=== PATIENT | female | born 1960 | race American Indian/Alaskan Native ===

== ENCOUNTER 2017-05-30 20:24 | Emergency (ER) | payer MEDICARE ==
[2017-05-30 22:33] VITALS: BP 151/96
[2017-05-31 00:18] LABS: BUN/Creatinine Ratio 26; Blood Urea Nitrogen 21 mg/dL (7-17); Calcium 9.6 mg/dL (8.4-10.2); Hemolysis Index 34
[2017-05-31 00:28] LABS: Basophils # (Auto) 0.1 K/mm3 (0.0-0.1); Basophils % (Auto) 0.8 % (0.0-1.8); Eosinophils # (Auto) 0.1 K/mm3 (0.0-0.4); Eosinophils % (Auto) 1.3 % (0.0-4.3); Hematocrit 39.3 % (30.3-42.9); Hemoglobin 12.6 gm/dl (10.1-14.3); Lymphocytes # (Auto) 2.3 K/mm3 (1.2-5.4); Lymphocytes % (Auto) 23.4 % (13.4-35.0); Mean Corpuscular HGB Conc 32 % (30-34); Mean Corpuscular Hemoglobin 29 pg (28-32); Mean Corpuscular Volume 89 fl (79-97); Monocytes # (Auto) 0.8 K/mm3 (0.0-0.8); Monocytes % (Auto) 8.6 % (0.0-7.3); Red Blood Count 4.42 M/mm3 (3.65-5.03); Red Cell Distribution Width 13.7 % (13.2-15.2)
[2017-05-31 00:33] LABS: Platelet Count 170 K/mm3 (140-440)
[2017-05-31 02:08] LABS: Amphetamine Screen,Urine PRESUMPTIVE NEGATIVE; Benzodiazepines Screen,Urine PRESUMPTIVE NEGATIVE; Cannabinoid Screen,Urine PRESUMPTIVE NEGATIVE; Cocaine Screen,Urine PRESUMPTIVE NEGATIVE; Methadone Screen,Urine PRESUMPTIVE NEGATIVE; Opiate Screen,Urine PRESUMPTIVE NEGATIVE
[2017-05-31 02:14] LABS: Bilirubin,Urine NEG (Negative); Blood,Urine NEG (Negative); Calcium Oxalate Crystals,Urine 2+; Color,Urine Yellow (Yellow); Hyaline Casts,Urine 12 /LPF; Mucus,Urine FEW /HPF; Nitrite,Urine NEG (Negative); Protein,Urine <15 mg/dL mg/dL (Negative); WBC,Urine < 1.0 /HPF (0.0-6.0)
== END 2017-05-31 04:50 | disposition left against medical advice (07) ==
LOC: ED 20:24
DX: Z53.21 Procedure and treatment not carried out due to patient leaving prior to being seen by health care provider (principal)
CPT/HCPCS: 36415; 80048; 80307; 81001; 85025; G0480; 80320

== ENCOUNTER 2017-06-26 15:35 | Emergency (ER) | payer MEDICARE ==
[2017-06-26 15:43] VITALS: BP 134/86
--- NOTE | 2017-06-26 17:13 | Emergency Department Report ---
ED Rash HPI - HPI Chief Complaint: Skin Rash Stated Complaint: RASH Time Seen by Provider: 06/26/17 17:07 Duration: 3 Days Location: Chest Suspected Cause: Other (new sports bra) Rash Symptoms: Yes Itching, No Facial Swelling, No Tongue/Oral Swelling, No Breathing Difficulties, No Choking Sensation, No Wheezing/Dyspnea, No Peeling, No Blistering, No Fever Severity: mild (56 yo female presents with rash central chest.) ED Review of Systems ROS: Stated complaint: RASH Other details as noted in HPI Constitutional: denies: fever, malaise Respiratory: denies: cough Gastrointestinal: denies: abdominal pain, nausea ED Past Medical Hx - Past Medical History Previous Medical History?: Yes Hx Hypertension: Yes Hx of Cancer: Yes (breast) Hx Psychiatric Treatment: Yes (schizophrenia) Additional medical history: peptic ulcer - Surgical History Past Surgical History?: Yes Additional Surgical History: left ankle. right lumpectomy - Social History Smoking Status: Never Smoker Substance Use Type: None - Medications Home Medications: Home Medications Medication Instructions Recorded Confirmed Last Taken Type Neomycin/Bacitracin/Polymyxinb 1 applic TP BID 14 Days #30 06/26/17 Unknown Rx [Triple Antibiotic Ointment] oint...g. Rash Exam - Exam General: Vital signs noted. No distress. Alert and acting appropriately. HEENT: No Periorbital Edema, No Conjuctival Injection, No Chemosis, No Perioral Edema, No Tongue Edema, No Uvular Edema, No Compromised Airway, No Drooling Lungs: No Labored Respirations, No Retractions, No Use of Accessory Muscles Skin: Yes Maculopapular Rash, Yes Erythema, No Other (papular, pustular rash mid -chest 6 cm x 6 cm area) ED Course Vital Signs 06/26/17 15:39 Temperature 98.2 F Pulse Rate 91 H Respiratory 18 Rate Blood Pressure 134/86 O2 Sat by Pulse 97 Oximetry ED Medical Decision Making - Medical Decision Making folliculitis due to new sports bra rx: topical antibiotic ointment Critical care attestation.: If time is entered above; I have spent that time in minutes in the direct care of this critically ill patient, excluding procedure time. ED Disposition Clinical Impression: Folliculitis Disposition: DC- TO HOME OR SELFCARE Is pt being admited?: No Does the pt Need Aspirin: No Condition: Stable Prescriptions: Neomycin/Bacitracin/Polymyxinb [Triple Antibiotic Ointment] 1 applic TP BID 14 Days #30 oint...g. Time of Disposition: 17:16
== END 2017-06-26 17:36 | disposition home or self-care (01) ==
LOC: ED 15:35
DX: L73.9 Follicular disorder, unspecified (principal); I10 Essential (primary) hypertension; F20.9 Schizophrenia, unspecified; C50.919 Malignant neoplasm of unspecified site of unspecified female breast; K27.9 Peptic ulcer, site unspecified, unspecified as acute or chronic, without hemorrhage or perforation
CPT/HCPCS: 99282

== ENCOUNTER 2017-12-16 20:15 | Emergency (ER) | payer MEDICARE ==
[2017-12-17 03:55] VITALS: BP 127/86
[2017-12-17] MEDS ORDERED: ZOFRAN ODT PO ONE (07:09)
[2017-12-17] MEDS ORDERED: TYLENOL PO ONE (07:09)
--- NOTE | 2017-12-17 07:10 | Emergency Department Report ---
ED Abdominal Pain HPI - General Chief Complaint: Abdominal Pain Stated Complaint: ABD PAIN Time Seen by Provider: 12/17/17 06:59 Source: patient, RN notes reviewed, old records reviewed Mode of arrival: Ambulatory Limitations: No Limitations - History of Present Illness Initial Comments: This is a 57-year-old female who is not known to this provider previously. Presents to the ER with complaint of crampy abdominal pain and back cramping as well. She indicates that she feels constipated. She is nauseous but hasn't vomited. She indicates that she is passing gas intermittently. She denies urinary symptoms. She denies a history of abdominal surgeries. Her medical history includes schizophrenia, hypertension, possible peptic ulcer disease. MD Complaint: abdominal pain -: Gradual Location: diffuse Severity: moderate Severity scale (0 -10): 8 Quality: cramping Consistency: intermittent Improves With: rest Worsens With: movement Associated Symptoms: nausea, other - Related Data Previous Rx's Medication Instructions Recorded Last Taken Type Neomycin/Bacitracin/Polymyxinb 1 applic TP BID 14 Days #30 06/26/17 Unknown Rx [Triple Antibiotic Ointment] oint...g. Ondansetron [Zofran Odt] 4 mg PO Q8HR PRN #20 tab.rapdis 12/17/17 Unknown Rx Polyethylene Glycol 3350 [Miralax 17 gm PO QDAY #30 packet 12/17/17 Unknown Rx 3350] Allergies Allergy/AdvReac Type Severity Reaction Status Date / Time No Known Allergies Allergy Verified 12/16/17 21:54 ED Review of Systems ROS: Stated complaint: ABD PAIN Other details as noted in HPI Comment: All other systems reviewed and negative Constitutional: denies: fever, malaise Eyes: denies: eye discharge ENT: denies: epistaxis Respiratory: denies: cough Cardiovascular: denies: chest pain Gastrointestinal: abdominal pain, constipation Genitourinary: denies: dysuria ED Past Medical Hx - Past Medical History Hx Hypertension: Yes Hx Psychiatric Treatment: Yes (schizophrenia) Additional medical history: peptic ulcer - Surgical History Additional Surgical History: left ankle. right lumpectomy - Social History Smoking Status: Current Every Day Smoker Substance Use Type: None - Medications Home Medications: Home Medications Medication Instructions Recorded Confirmed Last Taken Type Neomycin/Bacitracin/Polymyxinb 1 applic TP BID 14 Days #30 06/26/17 Unknown Rx [Triple Antibiotic Ointment] oint...g. Ondansetron [Zofran Odt] 4 mg PO Q8HR PRN #20 tab.rapdis 12/17/17 Unknown Rx Polyethylene Glycol 3350 [Miralax 17 gm PO QDAY #30 packet 12/17/17 Unknown Rx 3350] ED Physical Exam - General Limitations: No Limitations General appearance: alert, in no apparent distress - Head Head exam: Present: atraumatic, normocephalic - Eye Eye exam: Present: normal appearance, EOMI. Absent: nystagmus - ENT ENT exam: Present: normal exam, normal orophraynx, mucous membranes moist, normal external ear exam - Neck Neck exam: Present: normal inspection, full ROM. Absent: tenderness, meningismus - Respiratory Respiratory exam: Present: normal lung sounds bilaterally. Absent: respiratory distress - Cardiovascular Cardiovascular Exam: Present: regular rate, normal rhythm, normal heart sounds. Absent: bradycardia, tachycardia, irregular rhythm, systolic murmur, diastolic murmur, rubs, gallop - GI/Abdominal GI/Abdominal exam: Present: soft, tenderness, normal bowel sounds. Absent: distended, guarding, rebound, rigid, pulsatile mass - Extremities Exam Extremities exam: Present: normal inspection, full ROM, normal capillary refill , other (2+ pulses noted in the bilateral upper, lower extremities. Compartments soft. No long bony tenderness. The pelvis is stable.). Absent: pedal edema, joint swelling, calf tenderness - Back Exam Back exam: Present: normal inspection, full ROM. Absent: tenderness, CVA tenderness (R), paraspinal tenderness, vertebral tenderness - Neurological Exam Neurological exam: Present: alert, oriented X3, CN II-XII intact, normal gait, other (Extraocular movements intact. Tongue midline. No facial droop. Facial sensation intact to light touch in the V1, V2, V3 distribution bilaterally. 5 and 5 strength in 4 extremities.. Sensation is intact to light touch in 4 extremities.). Absent: motor sensory deficit - Psychiatric Psychiatric exam: Present: normal affect, normal mood - Skin Skin exam: Present: warm, dry, intact, normal color. Absent: rash ED Course Vital Signs 12/16/17 12/16/17 12/17/17 21:11 21:48 03:52 Temperature 98.5 F 98.5 F 97.8 F Pulse Rate 83 80 80 Respiratory 18 18 18 Rate Blood Pressure 149/93 149/93 127/86 O2 Sat by Pulse 97 98 98 Oximetry ED Medical Decision Making - Lab Data Vital Signs 12/16/17 12/16/17 12/17/17 21:11 21:48 03:52 Temperature 98.5 F 98.5 F 97.8 F Pulse Rate 83 80 80 Respiratory 18 18 18 Rate Blood Pressure 149/93 149/93 127/86 O2 Sat by Pulse 97 98 98 Oximetry - Radiology Data Radiology results: report reviewed, image reviewed Noncontrast CT scan of the abdomen and pelvis shows constipation. There is no evidence of obstruction. - Medical Decision Making Differential diagnosis, including but not limited to: Constipation, obstruction , ileus Assessment and plan: 57-year-old female with probable constipation. She is afebrile with reassuring vital signs. Given her history of psychiatric disease , a noncontrast CT scan of the abdomen and pelvis is obtained, and confirms a suspected diagnosis of constipation. From a psychiatric standpoint, the patient is well compensated, is not homicidal or suicidal, is not delusional, and appears to exhibit inability to care for herself, and does not meet 1013 criteria. She is tolerating liquid feeds at this time. She is given instructions on how to modify diet and lifestyle to improve her symptoms of constipation. She will also be discharged with prescriptions for MiraLAX. Critical care attestation.: If time is entered above; I have spent that time in minutes in the direct care of this critically ill patient, excluding procedure time. ED Disposition Clinical Impression: Constipation Disposition: DC-01 TO HOME OR SELFCARE Is pt being admited?: No Does the pt Need Aspirin: No Condition: Stable Instructions: High Fiber Diet (ED), Constipation (ED) Additional Instructions: History, physical, CT scan suggested constipation as the most likely diagnosis. Constipation is typically secondary to diet and lifestyle. Patient should consume 6-8 cups of water daily. Patient should least consume 4-6 servings of fruits, vegetables. Patient should consume plenty of either. Constipation symptoms typically take 4-6 weeks to completely resolve. The MiraLAX medication may help, but it will work best if the patient is drinking enough water. Take the Zofran medication as needed for nausea. Please follow up with primary care doctor in 4-6 weeks. Return to the ER right away with new pain, worsening pain, migration of pain, fevers, chills, lethargy, irritability, projectile vomiting, change in mental status, confusion, inability to tolerate liquid feeds. Referrals: PRIMARY CARE, [Primary Care Provider] - 3-5 Days DON PIÑA MD [Staff Physician] - 3-5 Days
--- NOTE | 2017-12-17 07:37 | Cat Scan Report ---
CT ABDOMEN PELVIS WITHOUT CONTRAST: HISTORY: abdominal pain. COMPARISON: None. TECHNIQUE: Helical CT in 1.25mm intervals without IV contrast. Sagittal and coronal reconstructions. FINDINGS: Lung bases: Normal. Liver: Normal. Biliary system: Normal. Pancreas: Normal. Spleen: Normal. Kidneys/ureters/bladder: Normal. Adrenal glands: Normal. Aorta: Normal. Intestines: Moderate to large stool is present throughout the length of the colon. There is no evidence for bowel obstruction, focal inflammation or obvious mass. Appendix: Normal. Pelvic viscera: A 4.1 cm partially calcified fibroid is identified in the anterior uterine wall. The adnexa are unremarkable. Ascites: None. Adenopathy: None. Musculoskeletal: Minimal thoracolumbar spondylosis. No evidence for fracture or bony lesion. There is a small ventral wall defect the superior to the with a 0.8 cm neck and contains a small amount of omentum. No bowel loops are incorporated. IMPRESSION: No acute process. Moderate fecal retention. Calcified uterine fibroid. Small supraumbilical hernia containing fat.
== END 2017-12-17 08:20 | disposition home or self-care (01) ==
LOC: ED 20:15
DX: K59.09 Other constipation (principal); I10 Essential (primary) hypertension; F20.9 Schizophrenia, unspecified; F17.200 Nicotine dependence, unspecified, uncomplicated
CPT/HCPCS: 74176; Q0162